=== PATIENT | female | born 1960 | race Hispanic/Latino ===

== ENCOUNTER 2016-07-19 03:29 | Emergency (ER) | payer OTHER ==
[~2016-07-19] VITALS: Ht 152.4 cm; Wt 90.0 kg
[~2016-07-19 03:29] MED LIST: ASP81TEC PO; CALC1CAP26 PO; DOCU100T7 PO; GLPZ10T PO; IBUP200T48 PO; METF1000 PO; MULT-1018 PO; SMV40T PO; VICODIN 5-3251 EACH PO; [UNRECOGNIZED DRUG - CODE] PO
[2016-07-19 03:31] VITALS: BP 124/47; PULSE 94; RESP 18; O2SAT 99
[2016-07-19] MEDS ORDERED: Ondansetron 2 mg/mL 2 mL Inj IVPUSH ONE (03:45)
[2016-07-19] MEDS ORDERED: 0.9% Sodium Chloride 1,000 ML IV ONE (03:45)
[2016-07-19 04:13] LABS: BASOPHILS % (AUTO) 0.3 % (0-3)
--- NOTE | 2016-07-19 04:13 | ED.REPORT ---
HPI-Dizziness / Weakness Date of Service Jul 19, 2016 ED Provider: Andreas Solorio MD 55-year-old female with a past medical history of diabetes, hypertension, hyperlipidemia presents today secondary to dizziness 3 days and paresthesia 1 day. Patient states she has a history of dizziness but it is recently gotten worse. She states her current symptoms worsen when she moves specifically from sitting to standing as if the "room is spinning" also affecting her ability to walk however the sensation will subside when she lies down. She endorses nausea no vomiting also endorsing a sharp headache was onset was approximately 2 hours prior to ED arrival. Patient called 911 and she was unable to successfully walk across her living room using the wall for support. Upon arrival to the ED patient's symptoms had mostly resolved though she still endorsed dizziness and transient numbness/tingling in the tips of her fingers bilaterally. Nursing Notes Stated Complaint: NUMBNESS IN FINGERTIPS Chief Complaint: General Complaint Nursing Notes Reviewed: Yes Allergies: Coded Allergies: No Known Allergies (Unverified , 07/23/10) Scheduled Aspirin-Expunged Drug, Do Not Renew! (Aspirin EC-Expunged Drug, Do Not Renew!) 81 Mg Tablet 81 MG PO DAILY Stopped 07/23/10 Hydrocod/APAP-Expunged, Do Not Renew! (VICODIN 5/325-Expunged Drug, Do Not Renew ) 1 Each Tablet 1 TAB PO PRN IBUPROFEN-Expunged Drug, Do Not Renew! (IBUPROFEN-Expunged Drug, Do Not Renew!) 200 Mg Tablet 200 MG PO PRN Stopped 07/23/10 Loratadine/PSE-Expunged Drug, Do Not Renew! (Loratadine/PSE-Expunged Drug, Do Not Renew!) 1 Each Tab.er.12h 1 EACH PO DAILY Metformin-Expunged Drug, Do Not Renew! (Metformin-Expunged Drug, Do Not Renew!) 1,000 Mg Tablet 1,000 MG PO BID Take 1/2 usual dose evening prior to surgery & none AM of surgery. Simvastatin-Expunged Drug, Choose New Med! (Simvastatin-Expunged Drug, Choose New Med!) 40 Mg Tablet 40 MG PO HS glipiZIDE-Expunged Drug, Do Not Renew! (glipiZIDE-Expunged Drug, Do Not Renew!) 10 Mg Tablet 10 MG PO BID Hold AM of surgery Scheduled PRN Lorazepam (Lorazepam) 0.5 Mg Tablet 0.5 MG PO TID PRN PRN For Anxiety Miscellaneous Medications Manuel Carb/Vitamin D3-Expunged, Do Not Renew! (CALCIUM 600/VIT D-Expunged, Do Not Renew!) 1 Each Capsule 1 EACH PO Docusate Sodium-Expunged Drug, Do Not Renew! (Stool Softener-Expunged Drug, Do Not Renew!) 100 Mg Tablet 100 MG PO MULTIVITAMIN-Expunged Drug, Do Not Renew! (MULTI VITAMIN -Expunged Drug, Do Not Renew!) 1 Each Tablet 1 EACH PO General Time Seen by MD: 03:33 Chief Complaint Dizzy Hx Obtained From: Patient Arrived By: Ambulance Onset Occurred: 3 days ago Context of Onset: While turning head, With light exertion, With standing Symptom Duration: Waxes and wanes Location: : Head Quality: Painful, Sharp Radiation: Does not radiate Severity: Current: Mild Past Medical History Past Medical History Reported chronic migraine headaches and ear infections Denies [place] or blood clot Reports: Diabetes mellitus, Hyperlipidemia Past Surgical History 1. Cholecystectomy in the past. 2. Bilateral tubal ligation 29 years ago. 3. Two left ear surgeries and a tonsillectomy and adenoidectomy at age 9. Reports: Cholecystectomy, Tonsillectomy Reports: Tubal ligation Smoking History Never Smoker Ambulatory Status Independent Review of Systems REVIEW OF SYSTEMS Constitutional: Denies Chills, Fever, Sweats, Weakness Eyes: Denies Blurred Vision, Vision Changes ENT: Denies Dysphagia, Ear Pain, Hoarseness, Nasal Congestion, Nose Discharge, Throat Pain Neck: Denies Mass, Pain, Swelling Cardiovascular: Denies Chest Pain, Edema, Irregular Heart Rate, Palpitations, Rapid Heart Rate Respiratory: Denies Cough, Shortness of Breath, Sputum, Wheezing Gastrointestinal: Denies Abdominal Pain, Change in Appetite, Constipation, Diarrhea, Heartburn, Vomiting. Endorses nausea Neurological: Denies Change in LOC, Change in Speech, Confusion, Difficulty Walking, Dizziness, Double Vision, Drooping Mouth, Incoordination, Localized Weakness, Numbness, Seizures, Somnolence, Tremors, Vertigo Psychologic: Denies Agitation, Anxiety, Depression, Insomnia, Suicidal Thoughts Physical Exam General: Obese female No acute distress, well-developed, well-nourished, appropriately interactive HEENT: Normocephalic, atraumatic. External ears without defect. Pupils equal, round, and reactive to light and accommodation. Anicteric sclerae, moist conjunctivae, and no lid lag. Oropharynx free of erythema and cobble stoning with moist mucosa. Neck: Supple with full range of motion. No jugular venous distension. No bruits. Cardiovascular: Regular rate and rhythm with no murmurs, rubs, or gallops appreciated Pulmonary: Clear to auscultation bilaterally with no crackles, wheezes, or rhonchi. Normal respiratory effort with no use of accessory muscles. Abdomen: Bowel tones present. Soft, nontender, nondistended. Extremities: No clubbing, cyanosis, edema, or lymphadenopathy appreciated. Neurological: Cranial nerves grossly intact. No deficits appreciated. Normal muscle strength, tone, and bulk. Reflexes, coordination, and sensory function within normal limits. No known gait impairment. Psychiatric: Normal mood and affect. Alert and oriented to person, place, and time. Initial Vital Signs Vital Signs (First) Date Time Temp Pulse Resp B/P Pulse Ox O2 Delivery O2 Flow Rate FiO2 07/19/16 03:31 36.6 94 18 124/47 99 Room Air Interpretation & Diagnostics Lab Results Interpretation Result Diagram: 07/19/16 0401 07/19/16 0401 Test 07/19/16 04:01 White Blood Count 14.0th/mm3 (3.8-10.1) Red Blood Count 4.32mil/mm3 (3.90-5.20) Hemoglobin 13.4g/dL (12.0-15.6) Hematocrit 38.9% (35.0-46.0) Mean Corpuscular Volume 90.0fL (81-100) Mean Corpuscular Hemoglobin 31.0pg (27.0-35.0) Mean Corpuscular Hemoglobin Concent 34.4% (32.0-37.0) Red Cell Distribution Width 13.9% (12.3-15.4) Platelet Count 319bil/L (150-400) Neutrophils (%) (Auto) 73.1% (40-74) Lymphocytes (%) (Auto) 18.3% (14-46) Monocytes (%) (Auto) 6.5% (4-12) Eosinophils (%) (Auto) 1.7% (0-5) Basophils (%) (Auto) 0.3% (0-3) Sodium Level 140mEq/L (134-144) Potassium Level 3.8mEq/L (3.5-5.2) Chloride Level 102mEq/L (97-108) Carbon Dioxide Level 23mmol/L (18-29) Blood Urea Nitrogen 12mg/dL (6-24) Creatinine 0.50mg/dL (0.57-1.00) Estimat Glomerular Filtration Rate 183mL/min (>59) Glucose Level 164mg/dL (60-99) Calcium Level 8.8mg/dL (8.5-10.1) CT Head Interpretation No acute intracranial findings per [facility] radiologist Study: Head CT no contrast Re-Eval/Medical Decision Med Decision/Clinical Course G5-year-old patient with vertigo which is fairly clearly peripheral, and secondary hyperventilation with dysesthesias in the hands. Dizziness and balance website information provided. CBC, CMP unremarkable. CT brain noncontrast showed no acute intracranial findings. Based on physical exam findings and detailed history patient's current symptoms are most likely due to BPPV. Patient had a positive leftward gaze nystagmus while performing the Rosemead-Hallpike maneuver. Patient given informational packet describing home remedies including body positional changes for symptomatic relief as well as 0.5 mg tablets of lorazepam for symptomatic relief. She discharged home in stable condition. Re-Evaluation/Progress : Time of Eval: 05:00 Patient Status: Condition improved Patient Discharge & Departure Shift Change Sign-Out Response to Therapy: Improved Impression: Primary Impression: BPPV (benign paroxysmal positional vertigo) Laterality: unspecified laterality Qualified Code: H81.10 - Benign paroxysmal vertigo, unspecified ear Additional Impressions: Acute hyperventilation Paresthesias Disposition: Home Discharge Condition All VS Reviewed: Yes Condition: Improved Referrals: Carlos Sousa MD (PCP) Attending Statement As attending of record for this patient, I conducted an independent history and physical exam, and agree with resident's evaluation as documented above. KORI ADDISON DO Jul 19, 2016 04:13 Andreas Solorio MD Jul 19, 2016 06:12
[2016-07-19 04:17] LABS: EOSINOPHILS % (AUTO) 1.7 % (0-5); MONOCYTES % (AUTO) 6.5 % (4-12); NEUTROPHILS % (AUTO) 73.1 % (40-74); Platelet Count 319 bil/L (150-400)
[2016-07-19] MEDS ORDERED: LORA0.5T PO (05:08)
[2016-07-19 05:16] VITALS: BP 115/37; PULSE 90; RESP 18; O2SAT 97
--- NOTE | 2016-07-19 07:34 | DRSVH ---
PROCEDURE: CT BRAIN WITHOUT CONTRAST ([id number]) INDICATIONS: Dizzyness with ZEPEDA TECHNIQUE: Noncontrast 4.5 mm thick angled axial sections acquired from the foramen magnum to the vertex, with c oronal reformats. COMPARISON: None. FINDINGS: Image quality: Excellent. CSF spaces: Basal cisterns are patent. No extra-axial fluid collections. Ventricles are normal in size and shape. Brain: No midline shift. No intracranial masses or hemorrhage. Tee-white matter interface is norm al. Skull and face: Calvarium and visualized facial bones are intact, without suspicious lesions. Sinuses: Visualized sinuses and mastoids are clear. IMPRESSION: No acute intracranial disease process. Dictated by: Sherry Burkett MD, PhD on 07/19/2016 at 7:32 Approved by: Sherry Burkett MD, PhD on 07/19/2016 at 7:32
[2016-07-19] MEDS ORDERED: Sodium Chloride LOK Flush 10 mL Syringe IVFLUSH SCH (08:30)
== END 2016-07-19 05:17 | disposition home or self-care (01) ==
LOC: EDBD 03:29 → SED 03:29
DX: H81.10 Benign paroxysmal vertigo, unspecified ear (principal); R06.4 Hyperventilation; R20.2 Paresthesia of skin; R51 Headache; E11.9 Type 2 diabetes mellitus without complications; E78.5 Hyperlipidemia, unspecified; Z98.890 Other specified postprocedural states
CPT/HCPCS: 36415; 70450; 80048; 82948; 85025; 96361; 96374; 99285; J2405; J7030